=== PATIENT | female | born 1990 | race Caucasian/White ===

== ENCOUNTER → 2022-04-08 | Outpatient (CLI) | payer BC, SELFPAY ==
[2022-04-08 17:22] LABS: Absolute Lymphocyte Count 1.35 X10^3/uL (0.83-4.51); Absolute Neutrophil Count 2.7 X10^3/uL (2.0-7.7); Basophil# 0.05 X10^3/uL; Basophil% 1.1 % (0-1); Eosinophil# 0.14 X10^3/uL; Eosinophils% 3.1 % (0-5); Hematocrit 38.9 % (37-47); Hemoglobin 12.8 g/dL (12.0-15.0); Lymphocyte # 1.35 X10^3/ul (0.83-4.51); Lymphocyte % 29.7 % (19-41); Mean Corp Hgb Conc 32.9 g/dL (32-36); Mean Corpuscular Hgb 29.2 pg (27.0-32.0); Mean Corpuscular Volume 88.8 fL (81-99); Mean Platelet Vol. 10.7 fl (6.2-12.0); Monocyte# 0.34 X10^3/uL; Monocyte% 7.5 % (0-10); NRBC Flagged by Analyzer 0 % (0-5); Neutrophil # 2.66 X10^3/uL (2.7-7.7); Neutrophil % 58.4 % (47-70); Platelet Count 250 K/mm3 (150-450); RBC Distribution Width CV 12.6 % (11.6-14.6); RBC Distribution Width SD 41.2 fl (35.1-43.9); Red Blood Count 4.38 M/mm3 (4.2-5.4); White Blood Count 4.6 K/mm3 (4.4-11.0)
[2022-04-08 17:37] LABS: ALB/GLOB Ratio 1.2 RATIO (0.9-2.4); AST(SGOT) 11 U/L (15-37); Alanine Aminotransfer ALT/SGPT 20 U/L (13-56); Albumin, Serum 4.5 g/dL (3.2-5.0); Alkaline Phosphatase 62 U/L (45-117); Anion Gap 5 (5-15); BUN 14 mg/dL (7-18); BUN/Creat Ratio 20.9 RATIO (10-20); Chloride 109 mmol/L (98-107); Creatinine, Serum 0.67 mg/dL (0.55-1.02); EST Glomerular Filtration Rate 109 mL/min (>60); Est Glom Filt Rate - Afr Amer 132 mL/min (>60); Ferritin 82 ng/mL (8-252); Globulin 3.7 g/dL (2.2-4.2); Glucose 84 mg/dL (74-106); Iron 150 ug/dL (50-170); Potassium 4.3 mmol/L (3.5-5.1); Protein, Total 8.2 g/dL (6.4-8.2); Sodium Level 140 mmol/L (136-145)
== END | disposition home or self-care (01) ==
LOC: LABSPEC 04-11 07:37
PROVIDERS: Visit Provider Nurse Practitioner Family
DX: R06.02 Shortness of breath (principal); R53.1 Weakness; R53.83 Other fatigue; A68.1 Tick-borne relapsing fever; A44.0 Systemic bartonellosis; R06.09 Other forms of dyspnea; R13.10 Dysphagia, unspecified; F41.9 Anxiety disorder, unspecified; R51.9 Headache, unspecified; M62.838 Other muscle spasm; G31.84 Mild cognitive impairment of uncertain or unknown etiology
CPT/HCPCS: 80053; 82728; 83540; 85025